=== PATIENT | female | born 1960 | race American Indian/Alaskan Native ===

== ENCOUNTER 2017-05-28 09:26 | Emergency (ER) | payer OTHER ==
[2017-05-28] MEDS ORDERED: ASPIRIN PO ONE (10:06)
[2017-05-28 10:27] LABS: Basophils % (Auto) 0.6 % (0.0-1.8); Eosinophils # (Auto) 0.1 K/mm3 (0.0-0.4); Eosinophils % (Auto) 1.6 % (0.0-4.3); Hematocrit 41.8 % (30.3-42.9); Lymphocytes % (Auto) 32.3 % (13.4-35.0); Mean Corpuscular HGB Conc 34 % (30-34); Mean Corpuscular Hemoglobin 33 pg (28-32); Mean Corpuscular Volume 97 fl (79-97); Monocytes # (Auto) 0.6 K/mm3 (0.0-0.8); Monocytes % (Auto) 9.8 % (0.0-7.3); Platelet Count 161 K/mm3 (140-440); Red Blood Count 4.29 M/mm3 (3.65-5.03); Red Cell Distribution Width 14.5 % (13.2-15.2)
[2017-05-28 10:44] LABS: BUN/Creatinine Ratio 25; Blood Urea Nitrogen 20 mg/dL (7-17); Calcium 8.9 mg/dL (8.4-10.2); Hemolysis Index 10
--- NOTE | 2017-05-28 23:03 | Emergency Department Report ---
ED Chest Pain HPI - General Chief Complaint: Chest Pain Stated Complaint: CHEST PAIN Time Seen by Provider: 05/28/17 20:05 Source: patient Mode of arrival: Ambulatory Limitations: No Limitations - History of Present Illness Initial Comments: This is a pleasant 56-year-old female with past medical history significant for CVA in 2006 and a "mild heart attack" in 1995, who presents to the emergency room with a chief complaint of a dull constant chest pain that has been ongoing since 05/01/2017. She states that she was diagnosed with an upper respiratory infection at the time. States that the symptoms have not gotten better since that time. She admits that in the past she has had similar symptoms. In particular, in October 2016 and in February 2017 she states that she was under "a lot of stress" and the symptoms of chest pain would occur then. The difference between then and now is that the chest pain seems to be constant. She does state that chest pain is worse with deep inspiration but that is improved with movement. She states that she has been taking [id number] antacids but these have not been of any relief. She is concerned that she might be having some kind of acute coronary event. When asked, she does admit that she is under a lot of stress but does not voluntarily specify the cause of this stress. MD Complaint: chest pain -: Gradual, month(s) (1) Onset: during rest Pain Location: substernal Pain Radiation: none Severity: mild Severity scale (0 -10): 6 Quality: dull Consistency: constant Improves With: movement Worsens With: inspiration Context: other (stress) Other Symptoms: denies: cough, fever, syncope, rash, acid taste in mouth, leg swelling Treatments Prior to Arrival: none - Related Data Home Medications Medication Instructions Recorded Confirmed Last Taken Aspirin [Aspirin TAB] 325 mg PO QDAY 01/21/13 05/28/17 01/21/13 05:30 Triamter/Hctz 75-50 mg [Maxzide 1 tab PO QDAY 01/21/13 05/28/17 01/21/13 05:30 75-50 mg] Allergies Allergy/AdvReac Type Severity Reaction Status Date / Time No Known Allergies Allergy Verified 05/28/17 20:17 Heart Score - HEART Score History: Slightly suspicious EKG: Normal Age: 45-65 Risk factors: > 3 risk factors or hx of atherosclerotic disease Troponin: 1-3x normal limit HEART Score: 4 ED Review of Systems ROS: Stated complaint: CHEST PAIN Other details as noted in HPI Constitutional: see HPI. denies: chills, fever Eyes: denies: eye pain, eye discharge, vision change ENT: denies: ear pain, throat pain Respiratory: denies: cough, shortness of breath, wheezing Cardiovascular: as per HPI, chest pain. denies: palpitations Endocrine: no symptoms reported Gastrointestinal: denies: abdominal pain, nausea, diarrhea Genitourinary: denies: urgency, dysuria, discharge Musculoskeletal: denies: back pain, joint swelling, arthralgia Skin: denies: rash, lesions Neurological: denies: headache, weakness, paresthesias Psychiatric: denies: anxiety, depression Hematological/Lymphatic: denies: easy bleeding, easy bruising ED Past Medical Hx - Past Medical History Previous Medical History?: Yes Hx Hypertension: Yes Hx CVA: Yes (TIA 2006) Hx Heart Attack/AMI: Yes Hx Arthritis: Yes - Surgical History Past Surgical History?: Yes Additional Surgical History: D & C x 3 - Social History Smoking Status: Former Smoker Substance Use Type: Alcohol - Medications Home Medications: Home Medications Medication Instructions Recorded Confirmed Last Taken Type Aspirin [Aspirin TAB] 325 mg PO QDAY 01/21/13 05/28/17 01/21/13 05:30 History Triamter/Hctz 75-50 mg [Maxzide 1 tab PO QDAY 01/21/13 05/28/17 01/21/13 05:30 History 75-50 mg] ED Physical Exam - General Limitations: No Limitations General appearance: alert, in no apparent distress - Head Head exam: Present: atraumatic - Eye Eye exam: Present: normal appearance, PERRL - Neck Neck exam: Present: normal inspection - Respiratory Respiratory exam: Present: normal lung sounds bilaterally, respiratory distress. Absent: wheezes, rales, rhonchi, stridor - Cardiovascular Cardiovascular Exam: Present: regular rate, normal rhythm, normal heart sounds - GI/Abdominal GI/Abdominal exam: Present: soft, normal bowel sounds. Absent: distended, tenderness, guarding, rebound, rigid - Rectal Rectal exam: Present: deferred - Extremities Exam Extremities exam: Present: normal inspection, full ROM, normal capillary refill - Back Exam Back exam: Present: normal inspection - Neurological Exam Neurological exam: Present: alert, oriented X3, CN II-XII intact - Psychiatric Psychiatric exam: Present: normal affect - Skin Skin exam: Present: warm, dry, intact ED Course Vital Signs 05/28/17 05/28/17 05/28/17 10:02 17:45 20:04 Temperature 97.7 F Pulse Rate 57 L 54 L Respiratory 16 22 Rate Blood Pressure 149/81 118/72 118/72 O2 Sat by Pulse 100 97 100 Oximetry 05/28/17 20:10 Temperature Pulse Rate Respiratory 16 Rate Blood Pressure O2 Sat by Pulse 100 Oximetry - Reevaluation(s) Reevaluation #1: 05/28/17 23:05 I discussed with the patient at length her laboratory findings today. There is no evidence of an acute coronary event in progress today. Again, she does admit that this happens when she gets mentally stressed. And she does report that she has been under a lot of mental stress. At this time I'll prescribe her tramadol and muscle relaxers. I advised her also to follow-up with her primary care doctor. She expresses understanding. We will give her Toradol prior to discharge. ED Medical Decision Making - Lab Data Result diagrams: 05/28/17 10:12 05/28/17 10:12 Critical care attestation.: If time is entered above; I have spent that time in minutes in the direct care of this critically ill patient, excluding procedure time. ED Disposition Clinical Impression: Anxiety Chest pain Qualifiers: Chest pain type: chest pain on breathing Qualified Code(s): R07.1 - Chest pain on breathing; R07.81 - Pleurodynia Disposition: - TO HOME OR SELFCARE Is pt being admited?: No Does the pt Need Aspirin: No Condition: Stable Instructions: Chest Pain (ED), Costochondritis (ED) Additional Instructions: Rest, fluids, watch for worsening, new symptoms, return as needed. Follow up with your primary care doctor, call [phone] if you think you're having a life threatening emergency. Referrals: [facility] [Other] - 3-5 Days
[2017-05-28 23:26] VITALS: BP 127/66
[2017-05-28] MEDS ORDERED: TORADOL IM ONE (23:29)
== END 2017-05-28 23:41 | disposition home or self-care (01) ==
LOC: ED 09:26
DX: F41.9 Anxiety disorder, unspecified (principal); I10 Essential (primary) hypertension; Z86.73 Personal history of transient ischemic attack (TIA), and cerebral infarction without residual deficits; M19.90 Unspecified osteoarthritis, unspecified site; I25.2 Old myocardial infarction
CPT/HCPCS: 36415; 80048; 84484; 85025; 93005; 93010; 96372; 99284; J1885

== ENCOUNTER 2017-11-14 08:06 | Outpatient (CLI) | payer OTHER ==
--- NOTE | 2017-11-14 10:47 | Mammography Report ---
BILATERAL MAMMOGRAM: FINDINGS: The breast tissue is heterogeneously dense, which could obscure detection of small masses (approximately 50%-75% glandular). No mass, distortion, suspicious calcification, or skin change is seen. No recent or available exams for comparison. CAD was utilized. IMPRESSION: Negative mammogram. There is no mammographic evidence of malignancy. RECOMMENDATION: Follow-up per ACS guidelines. BI-RADS CATEGORY: 1 = Negative ACR BI-RADS MAMMOGRAPHIC CODES: 0 = Needs additional imaging evaluation; 1 = Negative; 2 = Benign; 3 = Probably benign; 4 = Suspicious; 5 = Malignant; 6 = Known biopsy-proven malignancy COMMENT: 1. Dense breast tissue, i.e., adenosis, fibrocystic changes, etc., may obscure an underlying neoplasm. 2. Approximately 10% of cancers are not detected with mammography. 3. A negative mammography report should not delay biopsy if a clinically suspicious mass is present. COMMENT: Patient follow-up letters are generated in [employer].
== END 2017-11-14 08:07 | disposition home or self-care (01) ==
LOC: MAMMO 08:06
PROVIDERS: ATTEND Family Medicine
DX: Z12.31 Encounter for screening mammogram for malignant neoplasm of breast (principal); I10 Essential (primary) hypertension; F41.9 Anxiety disorder, unspecified; M19.90 Unspecified osteoarthritis, unspecified site; Z87.891 Personal history of nicotine dependence
CPT/HCPCS: 77067